=== PATIENT | female | born 1980 | race Caucasian/White ===

== ENCOUNTER 2023-03-11 08:52 | Observation (INO) ==
[~2023-03-11 08:52] MED LIST: Naloxone 0.4 mg VIAL 0.4 mg/ml 1 ml VIAL IV PUSH PRN
[2023-03-11] MEDS ORDERED: Clindamycin 300 MG/D5W BAG 300 MG/50 ML BAG IV ONE (09:00)
[2023-03-11] MEDS ORDERED: Dexamethasone Oral Solution 1 MG/ML 10 ML UDC (10 MG) PO ONE (09:00)
[2023-03-11] MEDS ORDERED: HYDROmorphone PCA 20 MG/20 ML PCA.SYRING PCA SCH (09:00)
[2023-03-11] MEDS ORDERED: Clindamycin 600 MG/NS BAG IV ONE (09:15)
[2023-03-11 09:49] LABS: Hematocrit 37.2 % (35-45); Hemoglobin 12.5 g/dL (11.5-14.3); Mean Corpuscular Hemoglobin 28.9 pg (27-33); Mean Corpuscular Hgb Conc 33.5 g/dL (31-36); Mean Corpuscular Volume 86.1 fL (80-97); Mean Platelet Volume 8.7 fL (7.5-11.2); Platelet Count 290 10^3/uL (150-450); Red Blood Count 4.32 10^6/uL (3.63-4.92); Red Cell Distribution Width 13.2 % (12-17); White Blood Count 7.7 10^3/uL (3.8-11.8)
[2023-03-11 09:56] LABS: INR 1.06 (0.83-1.13)
[2023-03-11] MEDS ORDERED: Ondansetron 4 mg VIAL 2 MG/ML 2 ml VIAL ONE (09:57)
[2023-03-11] MEDS ORDERED: Scopolamine 1 mg/72hr PATCH ONE (09:57)
[2023-03-11] MEDS ORDERED: oxyCODONE SR 10 mg TAB ONE (09:57)
[2023-03-11 10:06] LABS: Anion Gap 7 mmol/L (2-16); Blood Urea Nitrogen 14 mg/dL (6-24); CO2 Carbon Dioxide 24 mmol/L (22-32); Chloride 106 mmol/L (101-111); Glucose 154 mg/dL (70-100); Potassium 4.3 mmol/L (3.5-5.0); Sodium 137 mmol/L (135-145); eGFR CKD-EPI 95.5 (>60)
[2023-03-11 10:13] LABS: HCG Pregnancy < 0.60 mIU/mL
[2023-03-11] MEDS ORDERED: Iohexol 350 (CONTRAST) 100 ML PAK IV ONE (10:17)
[2023-03-11] MEDS ORDERED: nitroGLYCERIN DRIP 25,000 MCG/250 ML BTL ONE (10:17)
[2023-03-11] MEDS ORDERED: Heparin 2 UNITS/ML IVPREMIX 3,000 UNIT/1,500 ML BAG IV ONE (10:17)
[2023-03-11] MEDS ORDERED: Lidocaine 1% VIAL 10 MG/ML 30 ML VIAL ONE (10:17)
[2023-03-11] MEDS ORDERED: Midazolam 10 mg/10 ml VIAL 1 mg/ml 10 ml VIAL (10 mg) IV SLOW PU ONE (10:22)
[2023-03-11] MEDS ORDERED: fentaNYL 100 mcg/2 ml 50 MCG/ML VIAL IV SLOW PU ONE (10:22)
[2023-03-11] MEDS ORDERED: Flumazenil 0.5 mg/5 ml 0.1 MG/ML 5 ml VIAL IV PRN (10:22)
[2023-03-11] MEDS ORDERED: Naloxone 0.4 mg VIAL 0.4 mg/ml 1 ml VIAL IV PUSH PRN (10:22)
[2023-03-11] MEDS ORDERED: Midazolam 5 mg/5 ml VIAL 1 mg/ml 5 ml VIAL (5 mg) ONE (10:30)
[2023-03-11] MEDS ORDERED: fentaNYL 100 mcg/2 ml 50 MCG/ML VIAL ONE ×3 (10:31→11:34)
[2023-03-11] MEDS ORDERED: HYDROmorphone 0.5 MG/0.5 ML SYRINGE ONE (11:48)
[2023-03-11] MEDS ORDERED: Atropine 0.1 MG/ML 10 ml SYR (1 mg) ONE (12:02)
[2023-03-11] MEDS ORDERED: Prochlorperazine 5 mg/ml 2 ml VIAL (10 mg) ONE (12:08)
[2023-03-11] MEDS ORDERED: Dextrose 50% Syringe 50 ml 25 GM/50 ML SYRINGE IV PUSH PRN (14:06)
[2023-03-11] MEDS ORDERED: LORazepam 2 mg VIAL 1 ml IV PUSH PRN (19:14)
[2023-03-11] MEDS ORDERED: NS 0.9% 1,000 ML IV SCH (19:15)
[2023-03-11] MEDS: Ondansetron 4 mg VIAL 2 MG/ML 2 ml VIAL IV SCH (19:55)
[2023-03-12] MEDS: Ondansetron 4 mg VIAL 2 MG/ML 2 ml VIAL IV SCH ×2 (01:36→08:01)
[2023-03-12] MEDS ORDERED: HYDROcodone/ACETAMIN 5/325 mg TAB PO PRN (09:57)
[2023-03-12] MEDS: Ketorolac 10 mg TAB (NF) PO SCH ×2 (12:20→17:22)
[2023-03-12 14:29] VITALS: BP 140/81
== END 2023-03-12 16:40 | disposition home or self-care (01) ==
LOC: SSU 08:52 → CHICATH 08:52
PROVIDERS: ADMIT Hospitalist; ATTEND Internal Medicine
PROC: ANG.UFE (2023-03-11 10:10)